=== PATIENT | female | born 1985 | race African-American/Black ===

== ENCOUNTER 2020-12-16 17:00 | Emergency (ER) | payer SELFPAY ==
[~2020-12-16] VITALS: Ht 172.7 cm; Wt 109.1 kg
[2020-12-16 17:15] VITALS: BP 119/67
[2020-12-16] MEDS ORDERED: KETOROLAC 60 MG/2 ML VIAL. IM ONE (17:30)
[2020-12-16] MEDS ORDERED: ORPHENADRINE CITRATE 60 MG/2 ML VIAL. IM ONE (17:30)
[2020-12-16] MEDS ORDERED: MORPHINE SULFATE 2 MG/ML INJ. IM ONE (17:30)
--- NOTE | 2020-12-16 17:54 | PHYS DOC ---
Past Medical History Past Surgical History: No Surgical History General Adult EDM: Chief Complaint: BACK PAIN OR INJURY HPI: HPI: Patient is a 35 year old female who presents with was in wing stop and started slipping on the floor and her legs did almost a split pose and she was trying to gain her balance and another kevin came up and caught her and helped her get her balance. She states she was fine after it happened but today she has had right sharp shooting pain that goes from her knee up through her thigh and into her back and into the right hip. She states that she has not taken any medications for pain. Rates her pain a 10 out of 10. She states she cannot fully bend her knee due to the pain. States she did not actually fall and she did not hear a pop. She was able to ambulate after the incident. Patient denies any past medical history. Denies numbness or tingling, focal weakness or swelling. Review of Systems: Review of Systems: Constitutional: Denies fever or chills. [] Eyes: Denies change in visual acuity. [] HENT: Denies nasal congestion or sore throat. [] Respiratory: Denies cough or shortness of breath. [] Cardiovascular: Denies chest pain or edema. [] GI: Denies abdominal pain, nausea, vomiting, bloody stools or diarrhea. [] : Denies dysuria. [] Musculoskeletal: Denies back pain or joint pain. [] Integument: Denies rash. [] Neurologic: Denies headache, focal weakness or sensory changes. [] Endocrine: Denies polyuria or polydipsia. [] Lymphatic: Denies swollen glands. [] Psychiatric: Denies depression or anxiety. [] Heart Score: C/O Chest Pain: No Risk Factors: Risk Factors: DM, Current or recent (<one month) smoker, HTN, HLP, family history of CAD, obesity. Risk Scores: Score 0 - 3: 2.5% MACE over next 6 weeks - Discharge Home Score 4 - 6: 20.3% MACE over next 6 weeks - Admit for Clinical Observation Score 7 - 10: 72.7% MACE over next 6 weeks - Early Invasive Strategies Current Medications: Current Medications Medications (Trade) Dose Ordered Sig/Ed Start Time Stop Time Status Last Admin Dose Admin Ketorolac Tromethamine (Toradol Im) 60 mg 1X ONCE 12/16/20 17:30 12/16/20 17:31 UNV Morphine Sulfate (Morphine Sulfate) 2 mg 1X ONCE 12/16/20 17:30 12/16/20 17:31 DC Orphenadrine Citrate (Norflex) 60 mg 1X ONCE 12/16/20 17:30 12/16/20 17:31 DC Allergies: Allergies: Allergies Coded Allergies Type Severity Reaction Last Updated Verified No Known Drug Allergies 12/16/20 No Physical Exam: PE: Constitutional: Well developed, well nourished, no acute distress, non-toxic appearance. [] HENT: Normocephalic, atraumatic, bilateral external ears normal, oropharynx moist, no oral exudates, nose normal. [] Eyes: PERRLA, EOMI, conjunctiva normal, no discharge. [] Neck: Normal range of motion, no tenderness, supple, no stridor. [] Cardiovascular:Heart rate regular rhythm, no murmur [] Lungs & Thorax: Bilateral breath sounds clear to auscultation [] Abdomen: Bowel sounds normal, soft, no tenderness, no masses, no pulsatile masses. [] Skin: Warm, dry, no erythema, no rash. [] Back: Right lower back tenderness, no CVA tenderness. [] Extremities: Right lateral knee tenderness, no cyanosis, no clubbing, ROM intact, no edema. [] Neurologic: Alert and oriented X 3, normal motor function, normal sensory function, no focal deficits noted. [] Psychologic: Affect normal, judgement normal, mood normal. [] Current Patient Data: Vital Signs: Vital Signs Date Time Temp Pulse Resp B/P (MAP) Pulse Ox O2 Delivery O2 Flow Rate FiO2 12/16/20 17:15 97.5 104 18 119/67 100 Room Air 97.5 EKG: EKG: [] Radiology/Procedures: Radiology/Procedures: [] Impression: [facility] [address] [place] [address] IMAGING REPORT Signed PATIENT: MARCO ANTONIO FOX ACCOUNT: [id number] : 1985 LOCATION: ER AGE: 35 SEX: F EXAM STATUS: REG ER ORD. PHYSICIAN: JOEL PEDRAZA APRN REASON: PAIN AFTER FALL PROCEDURE: KNEE RIGHT 3V Exam: Right knee 3 views INDICATION: Pain after fall TECHNIQUE: Frontal, lateral oblique views of the right knee Comparisons: None FINDINGS: Bone mineralization is normal. No acute or healed fractures. Soft tissues are unremarkable. Joint spaces are well-maintained. IMPRESSION: No acute osseous abnormality Electronically signed by: Jorge Luis Clinton MD (12/16/2020 6:06 PM) [facility] DICTATED and SIGNED BY: JORGE LUIS CLINTON MD DATE: 12/16/20 [id number] [facility] [address] [place] [address] IMAGING REPORT Signed PATIENT: MARCO ANTONIO FOX ACCOUNT: [id number] : 1985 LOCATION: ER AGE: 35 SEX: F EXAM STATUS: REG ER ORD. PHYSICIAN: JOEL PEDRAZA APRN REASON: PAIN AFTER FALL PROCEDURE: HIP RIGHT 2V WITH PELVIS XR BILATERAL HIP (WITH OR WITHOUT PELVIS) 2 VIEWS_RIGHT DATE: 12/16/2020 5:55 PM INDICATION: PAIN AFTER FALL COMPARISON: None. FINDINGS: Bones: There is no evidence of acute fracture or dislocation. Joints: The joint spaces are normal. Miscellaneous: None. IMPRESSION: No evidence of acute fracture. Electronically signed by: Sumeet Adhikari MD (12/16/2020 6:06 PM) [facility] DICTATED and SIGNED BY: SUMEET ADHIKARI MD DATE: 12/16/20 [id number] [facility] [address] [place] [address] IMAGING REPORT Signed PATIENT: MARCO ANTONIO FOX ACCOUNT: [id number] : 1985 LOCATION: ER AGE: 35 SEX: F EXAM STATUS: REG ER ORD. PHYSICIAN: JOEL PEDRAZA APRN REASON: PAIN AFTER FALL PROCEDURE: CT LUMBAR SPINE WO CONTRAST Exam: CT of lumbar spine without contrast INDICATION: Pain after fall TECHNIQUE: Sequential axial images through the lumbar spine obtained without IV contrast. Sagittal and coronal reformatted images were reconstructed from the axial data and reviewed. Exposure: One or more of the following in the visualized dose reduction techniques were utilized for this examination: 1. Automated exposure control 2. Adjustment of the MA and/or KV according to patient size 3. Use of iterative of reconstructive technique Comparisons: None FINDINGS: Vertebral body heights and alignment are well-maintained. 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 Acute Fracture to the lumbar spine is not identified. No significant spondylotic changes lumbar spine. Visualized paraspinal soft tissues are unremarkable. IMPRESSION: Negative CT lumbar spine for acute traumatic injury. Electronically signed by: Jorge Luis Clinton MD (12/16/2020 9:23 PM) [facility] DICTATED and SIGNED BY: JORGE LUIS CLINTON MD DATE: 12/16/[id number] 0 Course & Med Decision Making: Course & Med Decision Making Pertinent Labs and Imaging studies reviewed. (See chart for details) See HPI. Alert and oriented x4. Ambulatory but cannot put a lot of pressure on the right lower extremity. Skin pink warm and dry. No deformity, no swelling, no bruising. Pedal pulse strong and present. She can bend her knee approximately 45% before the pain increases. Patient is given Toradol, Norflex, morphine in the ED. Tenderness to right lateral knee, right lateral thigh and right lower back. [] Dragon Disclaimer: Dwight Disclaimer: This electronic medical record was generated, in whole or in part, using a voice recognition dictation system. Departure Departure Impression: Primary Impression: Acute knee pain Qualified Codes: M25.561 - Pain in right knee Additional Impressions: Hip pain, acute Qualified Codes: M25.551 - Pain in right hip Low back pain Qualified Codes: M54.41 - Lumbago with sciatica, right side Sciatic leg pain Disposition: HOME / SELF CARE / HOMELESS Condition: STABLE Referrals: JACQUE BAILEY Jr. DO Patient Instructions: Knee Sprain, Low Back Strain with [facility], Sciatica with [facility] Additional Instructions: Follow-up with orthopedic or primary care provider if needed. Take medications as prescribed and with food. Remember these medications can make you sleepy, so do not drive or drink alcohol while taking them. Scripts Diclofenac Sodium (DICLOFENAC SODIUM) 25 Mg Tablet.dr 25 MG PO BID, #8 TAB Prov: JOEL PEDRAZA APRN 12/16/20 Cyclobenzaprine Hcl (CYCLOBENZAPRINE HCL) 10 Mg Tablet 1 TAB PO TID, #15 TAB Prov: JOEL PEDRAZA APRN 12/16/20 Tramadol Hcl (TRAMADOL HCL) 50 Mg Tablet 50 MG PO Q6HRS PRN for PAIN, #15 TAB Prov: JOEL PEDRAZA APRN 12/16/20 JOEL PEDRAZA APRN Dec 16, 2020 17:54
--- NOTE | 2020-12-16 18:08 | RAD ---
XR BILATERAL HIP (WITH OR WITHOUT PELVIS) 2 VIEWS_RIGHT DATE: 12/16/2020 5:55 PM INDICATION: PAIN AFTER FALL COMPARISON: None. FINDINGS: Bones: There is no evidence of acute fracture or dislocation. Joints: The joint spaces are normal. Miscellaneous: None. IMPRESSION: No evidence of acute fracture. Electronically signed by: Antoine Adhikari MD (12/16/2020 6:06 PM) [facility]
--- NOTE | 2020-12-16 18:09 | RAD ---
Exam: Right knee 3 views INDICATION: Pain after fall TECHNIQUE: Frontal, lateral oblique views of the right knee Comparisons: None FINDINGS: Bone mineralization is normal. No acute or healed fractures. Soft tissues are unremarkable. Joint spa angel luis are well-maintained. IMPRESSION: No acute osseous abnormality Electronically signed by: Jorge Luis Nolasco MD (12/16/2020 6:06 PM) [facility]
--- NOTE | 2020-12-16 21:25 | RAD ---
Exam: CT of lumbar spine without contrast INDICATION: Pain after fall TECHNIQUE: Sequential axial images through the lumbar spine obtained without IV contrast. Sagittal an d coronal reformatted images were reconstructed from the axial data and reviewed. Exposure: One or more of the following in the visualized dose reduction techniques were utilized for this examination: 1. Automated exposure control 2. Adjustment of the MA and/or KV according to patient size 3. Use of iterative of reconstructive technique Comparisons: None FINDINGS: Vertebral body heights and alignment are well-maintained. 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 Acute Fracture to th e lumbar spine is not identified. No significant spondylotic changes lumbar spine. Visualized paraspinal soft tissues are unremarkable. IMPRESSION: Negative CT lumbar spine for acute traumatic injury. Electronically signed by: Jorge Luis Nolasco MD (12/16/2020 9:23 PM) [facility]
[2020-12-16] MEDS ORDERED: TRAM50TA PO ×2 (21:42→21:45)
[2020-12-16] MEDS ORDERED: DICL25TA PO ×2 (21:42→21:45)
[2020-12-16] MEDS ORDERED: CYCL10TA2 PO ×2 (21:42→21:45)
== END 2020-12-16 22:20 | disposition home or self-care (01) ==
LOC: ER 17:00
DX: M25.561 Pain in right knee (principal); M25.551 Pain in right hip; M54.41 Lumbago with sciatica, right side
CPT/HCPCS: 29505; 72131; 73502; 73562; 81025; 96372; 99284; J1885; J2270; J2360